=== PATIENT | female | born 1955 | race Caucasian/White ===

== ENCOUNTER 2022-06-04 06:28 | Day surgery (SDC) | payer MEDICARE ==
[2022-06-04] MEDS ORDERED: Sodium Chloride 0.9% 10 ML Syringe FLUSH PRN (07:30)
== END 2022-06-04 08:30 | disposition home or self-care (01) ==
LOC: JP.SDS 06:28
PROVIDERS: ATTEND Ophthalmology
DX: H26.9 Unspecified cataract (principal); K21.9 Gastro-esophageal reflux disease without esophagitis
CPT/HCPCS: 66984; J3490; V2632

== ENCOUNTER 2022-06-18 07:16 | Day surgery (SDC) | payer MEDICARE ==
[2022-06-18] MEDS ORDERED: Sodium Chloride 0.9% 10 ML Syringe FLUSH PRN (08:00)
== END 2022-06-18 08:49 | disposition home or self-care (01) ==
LOC: JP.SDS 07:16
PROVIDERS: ATTEND Ophthalmology
DX: H26.9 Unspecified cataract (principal); Z79.899 Other long term (current) drug therapy
CPT/HCPCS: 66984; J3490

== ENCOUNTER 2022-09-20 16:48 | Emergency (ER) | payer MEDICARE ==
[2022-09-20] MEDS ORDERED: Sodium Chloride 0.9% 10 ML Syringe FLUSH PRN (17:44)
[2022-09-20] MEDS ORDERED: fentaNYL 100 MCG/2 ML SDV IVPUSH ONE (17:44)
[2022-09-20] MEDS ORDERED: Sodium Chloride 0.9% 1,000 ML IV SCH (17:45)
[2022-09-20] MEDS ORDERED: Sodium Chloride 0.9% 10 ML Syringe FLUSH ONE (17:52)
[2022-09-20] MEDS ORDERED: Sodium Chloride 0.9% 50 ML IV SCH (18:00)
[2022-09-20] MEDS ORDERED: Iopamidol 612 MG/ML 100 ML Bottle IV SCH (18:00)
[2022-09-20] MEDS ORDERED: Ondansetron 4 MG/2 ML SDV IVPUSH ONE (18:09)
[2022-09-20] MEDS ORDERED: Ketorolac 15 MG/ML SDV IVPUSH ONE (19:00)
[2022-09-20 19:28] LABS: LYME AB IgG Negative (Negative); LYME AB IgM Negative (Negative)
== END 2022-09-20 20:11 | disposition home or self-care (01) ==
LOC: JP.ED 16:48
DX: S22.31XA Fracture of one rib, right side, initial encounter for closed fracture (principal); S40.011A Contusion of right shoulder, initial encounter; S00.83XA Contusion of other part of head, initial encounter; E78.00 Pure hypercholesterolemia, unspecified; K21.9 Gastro-esophageal reflux disease without esophagitis; Z86.16 Personal history of COVID-19; Z79.899 Other long term (current) drug therapy; W01.0XXA Fall on same level from slipping, tripping and stumbling without subsequent striking against object, initial encounter
CPT/HCPCS: 36415; 71260; 73030; 80048; 86618; 96374; 96375; 99284; J1885; J2405; J3010; J3490; J7030; Q9967; 99283

== ENCOUNTER 2023-01-23 20:08 | Emergency (ER) | payer MEDICARE ==
[2023-01-23] MEDS ORDERED: Sodium Chloride 0.9% 10 ML Syringe FLUSH PRN (20:11)
[2023-01-23 21:30] LABS: HEMATOCRIT 32.8 % (34.3-46.0); HEMOGLOBIN 11.1 g/dL (11.2-15.5); MEAN CORPUSCULAR HEMOGLOBIN 28.9 pg (31.6-35.5); MEAN CORPUSCULAR HGB CONC 33.8 g/dL (31.6-35.5); MEAN CORPUSCULAR VOLUME 85.4 fL (81.4-99.0); PLATELET COUNT,PLT 79 K/uL (130-375); RED BLOOD CELL COUNT 3.84 M/uL (3.77-5.24); WHITE BLOOD CELL COUNT,WBC 2.2 K/uL (3.2-11.0)
[2023-01-23 21:50] LABS: A/G RATIO 0.9 (1.2-2.2); ALANINE AMINOTRANSFERASE,ALT 199 U/L (12-78); ALBUMIN 2.5 g/dL (3.4-5.0); ALKALINE PHOSPHATASE 172 U/L (46-116); ASPARTATE AMNIOTRANSFERASE,AST 167 U/L (15-37); BILIRUBIN TOTAL 0.6 mg/dL (0.2-1.0); BLOOD UREA NITROGEN,BUN 22 mg/dL (7-18); CARBON DIOXIDE,CO2 26 mmol/L (21-32); CHLORIDE,CL 101 mmol/L (100-108); CREATININE 0.8 mg/dL (0.6-1.0); ESTIMATED GFR 80 mL/min (>60); GLUCOSE RANDOM 103 mg/dL (74-106); POTASSIUM,K 3.3 mmol/L (3.6-5.2); PROTEIN TOTAL,TP 5.4 g/dL (6.4-8.2); SODIUM,NA 134 mmol/L (140-148)
[2023-01-23 21:55] LABS: ANION GAP 10.3 mmol/L (5.0-14.0)
[2023-01-23 22:11] LABS: ATYPICAL LYMPHOCYTES FEW; BAND ABSOLUTE MAN 0.02 K/uL; BAND PERCENT MAN 1 % (5-11); EOSINOPHILS ABSOLUTE MAN 0.04 K/uL (0.00-0.40); EOSINOPHILS PERCENT MAN 2 % (2-4); LYMPHOCYTES ABSOLUTE MAN 0.77 K/uL (0.8-3.3); LYMPHOCYTES PERCENT MAN 35 % (24-44); MONOCYTES ABSOLUTE MAN 0.24 K/uL (0.20-0.90); MONOCYTES PERCENT MAN 11 % (2-6); NEUTROPHILS ABSOLUTE MAN 1.12 K/uL (1.0-7.6); SEG NEUTROPHILS PERCENT MAN 51 % (36-66)
[2023-01-23 22:43] LABS: LYME AB IgG Negative (Negative)
[2023-01-23 22:46] LABS: LYME AB IgM Negative (Negative)
[2023-01-23 22:47] LABS: APPEARANCE,URINE CLEAR (CLEAR); BILIRUBIN,URINE NEGATIVE (NEGATIVE); COLOR,URINE YELLOW (YELLOW); GLUCOSE,URINE NEGATIVE (NEGATIVE); KETONES,URINE NEGATIVE (NEGATIVE); LEUKOCYTE ESTERASE,URINE NEGATIVE (NEGATIVE); NITRITE,URINE NEGATIVE (NEGATIVE); OCCULT BLOOD,URINE TRACE-INTACT (NEGATIVE); PH,URINE 6.5 (5.0-8.0); PROTEIN,URINE TRACE mg/dL (NEGATIVE)
[2023-01-23 22:51] LABS: AMORPHOUS SEDIMENT,URINE NOT SEEN; BACTERIA,URINE FEW; EPITHELIAL CELLS,URINE NOT SEEN; MUCUS,URINE NOT SEEN; RBC,URINE 0-5 (0-5); WBC,URINE 0-5 (0-5)
[2023-01-23] MEDS ORDERED: Doxycycline 100 MG Cap PO ONE (23:39)
== END 2023-01-24 00:23 | disposition home or self-care (01) ==
LOC: JP.ED 20:08
DX: S40.011A Contusion of right shoulder, initial encounter (principal); S50.02XA Contusion of left elbow, initial encounter; D61.818 Other pancytopenia; R79.89 Other specified abnormal findings of blood chemistry; E78.00 Pure hypercholesterolemia, unspecified; K21.9 Gastro-esophageal reflux disease without esophagitis; Z86.16 Personal history of COVID-19; Z79.899 Other long term (current) drug therapy; Z20.822 Contact with and (suspected) exposure to COVID-19; W19.XXXA Unspecified fall, initial encounter
CPT/HCPCS: 36415; 70450; 73030; 80053; 81001; 82140; 82947; 83605; 83690; 84443; 85025; 86140; 86618; 99284; U0002

== ENCOUNTER 2023-07-10 12:05 | Emergency (ER) | payer MEDICARE | END 2023-07-10 14:53 | disposition home or self-care (01) | LOC: JP.ED 12:05 | DX: S82.891A Other fracture of right lower leg, initial encounter for closed fracture (principal); E78.00 Pure hypercholesterolemia, unspecified; K21.9 Gastro-esophageal reflux disease without esophagitis; Z86.16 Personal history of COVID-19 | CPT/HCPCS: 73610-RT; 73630-RT; 99282; 99283 ==